=== PATIENT | female | born 1965 | race American Indian/Alaskan Native ===

== ENCOUNTER 2017-08-11 08:52 | Outpatient (CLI) | payer MEDICARE ==
--- NOTE | 2017-08-11 09:34 | XRay Report ---
ROUTINE CHEST, TWO VIEWS: Cough PA and lateral views demonstrate the heart and mediastinal contour to be of normal size and shape. The lungs are clear and fully expanded and the soft tissues and bony structures are normal. IMPRESSION: Normal study.
--- NOTE | 2017-08-11 09:39 | XRay Report ---
Bilateral knees: Bilateral knee pain. Routine views are compared to patient's prior exam in July 2015. Paratracheal spurs are predominantly noted involving the medial compartments of both knees and to a lesser extent the lateral compartments. The joint spaces appear generally preserved bilaterally. The articular margins are smooth. There is normal alignment of both knees. Spurs are present superiorly involving the right patellofemoral articulation. No effusion and no swelling is identified. The findings appear generally unchanged from prior exam. Impression: Findings consistent with stable degenerative arthritis.
== END 2017-08-11 08:53 | disposition home or self-care (01) ==
LOC: XRAY 08:52
PROVIDERS: ATTEND Internal Medicine Hematology & Oncology
DX: R05 Cough (principal); M25.561 Pain in right knee; M25.562 Pain in left knee
CPT/HCPCS: 71046

== ENCOUNTER 2017-10-16 14:52 | Outpatient (CLI) | payer MEDICARE ==
--- NOTE | 2017-10-16 15:58 | Mammography Report ---
BILATERAL MAMMOGRAM: FINDINGS: The breasts are almost entirely fat (<25% glandular). No mass, distortion, suspicious calcification, or skin change is seen. No significant change identified when compared to prior exam in October 2015. A biopsy marker is present in the lateral left breast. A second biopsy marker is noted in a stable left breast nodule. CAD was utilized. IMPRESSION: Negative mammogram. There is no mammographic evidence of malignancy. RECOMMENDATION: Follow-up per ACS guidelines. BI-RADS CATEGORY: 1 = Negative ACR BI-RADS MAMMOGRAPHIC CODES: 0 = Needs additional imaging evaluation; 1 = Negative; 2 = Benign; 3 = Probably benign; 4 = Suspicious; 5 = Malignant; 6 = Known biopsy-proven malignancy COMMENT: 1. Dense breast tissue, i.e., adenosis, fibrocystic changes, etc., may obscure an underlying neoplasm. 2. Approximately 10% of cancers are not detected with mammography. 3. A negative mammography report should not delay biopsy if a clinically suspicious mass is present. COMMENT: Patient follow-up letters are generated in [employer].
== END 2017-10-16 14:53 | disposition home or self-care (01) ==
LOC: MAMMO 14:52
PROVIDERS: ATTEND Internal Medicine Hematology & Oncology
DX: Z12.31 Encounter for screening mammogram for malignant neoplasm of breast (principal)
CPT/HCPCS: 77067

== ENCOUNTER 2018-01-05 10:04 | Outpatient (CLI) | payer MEDICARE ==
--- NOTE | 2018-01-05 12:27 | XRay Report ---
ROUTINE CHEST, TWO VIEWS: HISTORY: Cough. The trachea, heart, mediastinal contour, lung helms and bony thorax are unremarkable. IMPRESSION: Unremarkable chest x-ray. No significant change since 08/11/17.
== END 2018-01-05 10:05 | disposition home or self-care (01) ==
LOC: XRAY 10:04
PROVIDERS: ATTEND Internal Medicine Hematology & Oncology
DX: R05 Cough (principal); J45.909 Unspecified asthma, uncomplicated; K21.9 Gastro-esophageal reflux disease without esophagitis; E66.9 Obesity, unspecified; F41.9 Anxiety disorder, unspecified; F32.9 Major depressive disorder, single episode, unspecified
CPT/HCPCS: 71046

== ENCOUNTER 2018-02-07 12:18 | Outpatient (CLI) | payer MEDICARE ==
--- NOTE | 2018-02-07 13:44 | XRay Report ---
RIGHT SHOULDER, 3 VIEWS: HISTORY: right shoulder pain. Normal bone mineralization. No acute osseous injury or joint pathology is detected. The soft tissues are unremarkable. IMPRESSION: Right shoulder within normal limits.
== END 2018-02-07 12:19 | disposition home or self-care (01) ==
LOC: XRAY 12:18
PROVIDERS: ATTEND Internal Medicine Hematology & Oncology
DX: M25.511 Pain in right shoulder (principal); J45.909 Unspecified asthma, uncomplicated; E66.9 Obesity, unspecified; F32.9 Major depressive disorder, single episode, unspecified; F41.9 Anxiety disorder, unspecified; K21.9 Gastro-esophageal reflux disease without esophagitis; Z90.710 Acquired absence of both cervix and uterus

== ENCOUNTER 2018-03-15 09:15 | Outpatient (CLI) | payer MEDICARE ==
--- NOTE | 2018-03-15 09:55 | XRay Report ---
RIGHT WRIST, 3 VIEWS: History: Pain. Bone mineralization is normal. The scapholunate interval is widened consistent with scapholunate ligament injury. No evidence for fracture or, dislocation or bone lesion. Mild osteoarthritic changes are identified. The soft tissues are unremarkable. IMPRESSION: Scapholunate ligament injury is suspected, likely chronic. Mild osteoarthritis.
== END 2018-03-15 09:16 | disposition home or self-care (01) ==
LOC: XRAY 09:15
PROVIDERS: ATTEND Internal Medicine Hematology & Oncology
DX: M25.531 Pain in right wrist (principal); J45.909 Unspecified asthma, uncomplicated; E66.9 Obesity, unspecified; K21.9 Gastro-esophageal reflux disease without esophagitis; Z90.710 Acquired absence of both cervix and uterus

== ENCOUNTER 2018-10-18 08:36 | Emergency (ER) | payer MEDICARE ==
[2018-10-18 08:43] VITALS: BP 138/82
[2018-10-18] MEDS ORDERED: SOLU-Medrol IM ONE (09:04)
--- NOTE | 2018-10-18 09:07 | Emergency Department Report ---
ED Back Pain/Injury HPI - General Chief Complaint: Back Pain/Injury Stated Complaint: SCIATICA FLARE UP Time Seen by Provider: 10/18/18 08:50 Source: patient Limitations: No Limitations - History of Present Illness Initial Comments: Patient is 53 years old female with history of sciatica. Patient presented to the ER complaining of lower back pain radiated down to her right leg since yesterday. Patient denied any history of trauma. Patient denied any fever or chills. Patient denied any recent weight loss. Patient denied any weakness, numbness or tingling sensation. No bowel or bladder incontinence. MD Complaint: back pain - Related Data Home Medications Medication Instructions Recorded Confirmed Last Taken ALBUTEROL Inhaler (OR & NICU) 2 puff INHALATION PRN PRN 08/07/15 08/14/15 08/07/15 [ProAir HFA Inhaler] Carisoprodol [Soma] 250 mg PO QHS 08/07/15 08/14/15 08/12/15 HYDROcodone/APAP 5-325 [[place] 1 tab PO PRN PRN 08/07/15 08/14/15 08/12/15 5-325 mg TAB] PARoxetine [Paxil] 20 mg PO DAILY 08/07/15 08/14/15 08/12/15 Sertraline [Zoloft] 25 mg PO QDAY 08/07/15 08/14/15 08/12/15 Allergies Allergy/AdvReac Type Severity Reaction Status Date / Time No Known Allergies Allergy Verified 08/07/15 12:01 ED Review of Systems ROS: Stated complaint: SCIATICA FLARE UP Other details as noted in HPI Comment: All other systems reviewed and negative Constitutional: denies: chills, fever Respiratory: denies: cough Cardiovascular: denies: chest pain Gastrointestinal: denies: abdominal pain, nausea, vomiting, diarrhea, constipation, hematemesis, hematochezia Neurological: denies: headache, weakness, numbness, paresthesias, confusion, abnormal gait ED Past Medical Hx - Past Medical History Previous Medical History?: Yes Hx GERD: Yes ([place] WITH OTC MEDS) Hx Asthma: Yes Additional medical history: Fibromyalgia, sciatica, - Surgical History Past Surgical History?: Yes Additional Surgical History: right knee, hysterectomy - Social History Smoking Status: Never Smoker Substance Use Type: None - Medications Home Medications: Home Medications Medication Instructions Recorded Confirmed Last Taken Type ALBUTEROL Inhaler (OR & NICU) 2 puff INHALATION PRN PRN 08/07/15 08/14/15 08/07/15 History [ProAir HFA Inhaler] Carisoprodol [Soma] 250 mg PO QHS 08/07/15 08/14/15 08/12/15 History HYDROcodone/APAP 5-325 [[place] 1 tab PO PRN PRN 08/07/15 08/14/15 08/12/15 History 5-325 mg TAB] PARoxetine [Paxil] 20 mg PO DAILY 08/07/15 08/14/15 08/12/15 History Sertraline [Zoloft] 25 mg PO QDAY 08/07/15 08/14/15 08/12/15 History ED Physical Exam - General Limitations: No Limitations General appearance: alert, in no apparent distress - Head Head exam: Present: atraumatic, normocephalic, normal inspection - Eye Eye exam: Present: normal appearance - ENT ENT exam: Present: normal exam, normal orophraynx, mucous membranes moist - Neck Neck exam: Present: normal inspection, full ROM. Absent: tenderness, meningismus, lymphadenopathy, thyromegaly - Respiratory Respiratory exam: Present: normal lung sounds bilaterally. Absent: respiratory distress, wheezes, rales, rhonchi, chest wall tenderness, accessory muscle use, decreased breath sounds, prolonged expiratory - Cardiovascular Cardiovascular Exam: Present: regular rate, normal rhythm, normal heart sounds - GI/Abdominal GI/Abdominal exam: Present: soft, normal bowel sounds. Absent: distended, tenderness, guarding, rebound, rigid, pulsatile mass - Extremities Exam Extremities exam: Present: normal inspection, full ROM, normal capillary refill - Back Exam Back exam: Present: normal inspection, full ROM. Absent: CVA tenderness (R), CVA tenderness (L), muscle spasm, paraspinal tenderness, vertebral tenderness - Neurological Exam Neurological exam: Present: alert, oriented X3, CN II-XII intact, normal gait, reflexes normal - Skin Skin exam: Present: warm, intact, normal color ED Course Vital Signs 10/18/18 08:41 Temperature 97.7 F Pulse Rate 78 Respiratory 16 Rate Blood Pressure 138/82 O2 Sat by Pulse 100 Oximetry Critical care attestation.: If time is entered above; I have spent that time in minutes in the direct care of this critically ill patient, excluding procedure time. ED Disposition Clinical Impression: Acute back pain, Sciatica Disposition: TO HOME OR SELFCARE Is pt being admited?: No Condition: Stable Instructions: Lumbar Radiculopathy (ED) Referrals: JENA ROSARIO MD [Primary Care Provider] - 3-5 Days
== END 2018-10-18 09:24 | disposition home or self-care (01) ==
LOC: ED 08:36
DX: M54.40 Lumbago with sciatica, unspecified side (principal); K21.9 Gastro-esophageal reflux disease without esophagitis; J45.909 Unspecified asthma, uncomplicated
CPT/HCPCS: 96372; 99282; J2930

== ENCOUNTER 2018-10-24 09:42 | Outpatient (CLI) | payer MEDICARE ==
--- NOTE | 2018-10-24 13:17 | Mammography Report ---
BILATERAL DIGITAL SCREENING MAMMOGRAM with CAD: 10/24/18 09:42:00 CLINICAL: Routine screening. COMPARISON:10/16/17 and 10/27/15 FINDINGS: There are scattered areas of fibroglandular density.Left outer biopsy clip and a left inner biopsy clip. The left inner clip is within a stable circumscribed low-density nodule. No other mass, architectural distortion or suspicious calcifications. IMPRESSION: No mammographic evidence of malignancy. BI-RADS CATEGORY: 2 -- Benign RECOMMENDATION: Routine mammographic screening in one year. COMMENT: Patient follow-up letters are generated by our [employer] application.
== END 2018-10-24 09:43 | disposition home or self-care (01) ==
LOC: MAMMO 09:42
PROVIDERS: ATTEND Internal Medicine
DX: Z12.31 Encounter for screening mammogram for malignant neoplasm of breast (principal)
CPT/HCPCS: 77067

== ENCOUNTER 2019-05-13 10:23 | Emergency (ER) | payer MEDICARE ==
[2019-05-13 10:44] VITALS: BP 139/95
--- NOTE | 2019-05-13 10:45 | Event Note ---
ED Screening Note ED Screening Note: lower back pain radiating down the right leg no fall or injury hx of sciatica and fibromyalgia no bowel/bladder incontinence This initial assessment/diagnostic orders/clinical plan/treatment(s) is/are subject to change based on patients health status, clinical progression and re- assessment by fellow clinical providers in the ED. Further treatment and workup at subsequent clinical providers discretion. Patient/guardian urged not to elope from the ED as their condition may be serious if not clinically assessed and managed.
[2019-05-13] MEDS ORDERED: predniSONE 20 MG TAB PO ONE (11:32)
[2019-05-13] MEDS ORDERED: MORPHINE 4 MG/1 ML INJ IM ONE (11:34)
--- NOTE | 2019-05-13 11:42 | Emergency Department Report ---
HPI - General Chief Complaint: Extremity Problem,Nontraumatic Time Seen by Provider: 05/13/19 10:43 - HPI HPI: 53-year-old -Citizen Of The [place] female presents to the emergency department with a complaint of a 4 to five-day history of some right-sided back pain with radiation down the leg that she says is sciatica. She does have a history of sciatica, fibromyalgia and has a history of asthma. She tried some baclofen and Aleve for her symptoms without any relief. Her primary care physician is Dr. Devine, but she has not seen them regarding her symptoms. She denies any recent trauma or injury. No new numbness or paresthesias, problems with bowel or bladder, or any neurological deficits. No recent travel. ED Past Medical Hx - Past Medical History Previous Medical History?: Yes Hx GERD: Yes ([place] WITH OTC MEDS) Hx Asthma: Yes Additional medical history: Fibromyalgia, sciatica, - Surgical History Past Surgical History?: Yes Additional Surgical History: right knee, hysterectomy - Social History Smoking Status: Never Smoker Substance Use Type: None - Medications Home Medications: Home Medications Medication Instructions Recorded Confirmed Last Taken Type ALBUTEROL Inhaler (OR & NICU) 2 puff INHALATION PRN PRN 08/07/15 08/14/15 08/07/15 History [ProAir HFA Inhaler] Carisoprodol [Soma] 250 mg PO QHS 08/07/15 08/14/15 08/12/15 History HYDROcodone/APAP 5-325 [[place] 1 tab PO PRN PRN 08/07/15 08/14/15 08/12/15 History 5-325 mg TAB] PARoxetine [Paxil] 20 mg PO DAILY 08/07/15 08/14/15 08/12/15 History Sertraline [Zoloft] 25 mg PO QDAY 08/07/15 08/14/15 08/12/15 History Ondansetron [Zofran Odt] 4 mg PO Q8HR PRN #14 tab.rapdis 10/18/18 Unknown Rx traMADol [Ultram] 50 mg PO Q6HR PRN #14 tablet 10/18/18 Unknown Rx Cyclobenzaprine [Flexeril] 10 mg PO TID PRN #12 tablet 05/13/19 Unknown Rx Ibuprofen [Motrin 800 MG tab] 800 mg PO Q8HR PRN #20 tablet 05/13/19 Unknown Rx Prednisone [predniSONE 10 mg 10 mg PO .TAPER #1 tab.ds.pk 05/13/19 Unknown Rx (6-Day Pack, 21 Tabs)] ED Review of Systems ROS: Stated complaint: RT SIDE PAIN Other details as noted in HPI Comment: All other systems reviewed and negative Constitutional: denies: chills, fever Respiratory: denies: shortness of breath Cardiovascular: denies: chest pain Gastrointestinal: denies: abdominal pain Musculoskeletal: back pain, myalgia Skin: denies: rash, lesions Neurological: denies: headache, weakness Physical Exam - Physical Exam Vital Signs: Vital Signs 05/13/19 10:42 Temperature 98.5 F Pulse Rate 101 H Respiratory 20 Rate Blood Pressure 139/95 O2 Sat by Pulse 100 Oximetry Physical Exam: GENERAL: The patient is well-developed well-nourished. HENT: Normocephalic. Atraumatic. Patient has moist mucous membranes. EYES: Extraocular motions are intact. NECK: Supple. Trachea is midline. CHEST/LUNGS: Clear to auscultation. There is no respiratory distress noted. HEART/CARDIOVASCULAR: Regular. There is no tachycardia. There is no murmur. ABDOMEN: Abdomen is soft, nontender. Patient has normal bowel sounds. There is no abdominal distention. SKIN: Skin is warm and dry. NEURO: The patient is awake, alert, and oriented. The patient is cooperative. The patient has no focal neurologic deficits. Normal speech. MUSCULOSKELETAL: There is no tenderness to palpation or deformity. Patient has increased pain with range of motion of the right lower extremity. Positive right straight leg raise test. BACK: No midline thoracic or lumbar tenderness to palpation, step-off or deformity. ED Course Vital Signs 05/13/19 10:42 Temperature 98.5 F Pulse Rate 101 H Respiratory 20 Rate Blood Pressure 139/95 O2 Sat by Pulse 100 Oximetry ED Medical Decision Making - Medical Decision Making This patient has a history of sciatica and presents with some right sided back pain with radiation down through the buttock and the right leg. There has been no recent fall, trauma, injury. She does not have any problems with bowel or bladder, numbness or paresthesias or any neurological deficits. For this r danie, I did not feel that any imaging was necessary at this time. Also the patient appears low suspicion for any of the emergent back conditions such as cauda equina or cord compression syndrome. The patient was given a I am shot of morphine and upon reevaluation she is feeling improved. This all does appear consistent with her sciatica or some lumbar radiculopathy. She'll be placed on steroids and a muscle relaxer. She will follow-up with orthopedics and will return to the ER with any worsening of her symptoms or any acute distress. - Differential Diagnosis sciatica, lumbar strain, peripheral neuropathy Critical Care Time: No Critical care attestation.: If time is entered above; I have spent that time in minutes in the direct care of this critically ill patient, excluding procedure time. ED Disposition Clinical Impression: Sciatica Qualifiers: Laterality: right Qualified Code(s): M54.31 - Sciatica, right side Disposition: TO HOME OR SELFCARE Is pt being admited?: No Condition: Stable Instructions: Sciatica (ED), Lumbar Radiculopathy (ED) Additional Instructions: Please follow-up with your primary care physician in the next few days. I am also giving you a referral for a local orthopedic group to follow up regarding your back pain and sciatica. Return to the emergency Department with any worsening of your symptoms or any acute distress. You have been prescribed a medication that is sedating and therefore should not be taken prior to driving, working, and responsible for children and in no way should be mixed with alcohol of any quantity. Prescriptions: Cyclobenzaprine [Flexeril] 10 mg PO TID PRN #12 tablet PRN Reason: Muscle Spasm Ibuprofen [Motrin 800 MG tab] 800 mg PO Q8HR PRN #20 tablet PRN Reason: Pain , Severe (7-10) Prednisone [predniSONE 10 mg (6-Day Pack, 21 Tabs)] 10 mg PO .TAPER #1 tab.ds.pk Referrals: PRIMARY CARE, [Primary Care Provider] - 2-3 Days [facility] [Provider Group] - 2-3 Days Time of Disposition: 12:14
== END 2019-05-13 12:27 | disposition home or self-care (01) ==
LOC: ED 10:23
DX: M54.31 Sciatica, right side (principal); K21.9 Gastro-esophageal reflux disease without esophagitis; J45.909 Unspecified asthma, uncomplicated; M79.7 Fibromyalgia; Z90.710 Acquired absence of both cervix and uterus; Z79.1 Long term (current) use of non-steroidal anti-inflammatories (NSAID); Z79.899 Other long term (current) drug therapy
CPT/HCPCS: 96372; 99282; J2270; J7512